=== PATIENT | male | born 1995 | race Caucasian/White ===

== ENCOUNTER 2019-04-15 16:57 | Emergency (ER) | payer OTHER ==
[~2019-04-15] VITALS: Ht 170.2 cm; Wt 83.4 kg
[2019-04-15 16:58] VITALS: BP 144/81
[2019-04-15] MEDS ORDERED: NAPR-885 PO (17:07)
--- NOTE | 2019-04-15 19:59 | REP ---
FOOT: REASON: Pain. FINDINGS: The joint spaces are symmetric and relatively well maintained. There is no evidence of acute fracture or destructive osseous lesion. IMPRESSION: Negative. Electronically Signed by Buck Wolf DO 04/16/2019 09:05 A
--- NOTE | 2019-04-15 20:00 | REP ---
REASON: Pain. FINDINGS: No acute fracture or destructive osseous lesion. Electronically Signed by Buck Wolf DO 04/16/2019 09:05 A
== END 2019-04-15 19:53 | disposition home or self-care (01) ==
LOC: M ED 16:57
DX: S90.31XA Contusion of right foot, initial encounter (principal); S40.012A Contusion of left shoulder, initial encounter; S80.11XA Contusion of right lower leg, initial encounter; V43.52XA Car driver injured in collision with other type car in traffic accident, initial encounter; Z88.0 Allergy status to penicillin